=== PATIENT | male | born 1970 | race Caucasian/White ===

== ENCOUNTER 2022-06-04 11:57 | Emergency (ER) | payer OTHER, SELFPAY ==
[2022-06-04] VITALS (11 sets, daily range): BP systolic 131–152; BP diastolic 80–97; PULSE 76–86; RESP 18; TEMP 36.6; O2SAT 96–97; BMI 23.7
[2022-06-04 13:19] LABS: Troponin, Point-of-Care* 0.02 ng/ml (0.01-0.04)
[2022-06-04 13:31] LABS: Chloride* 102 mmol/L (96-114); Potassium* 3.6 mmol/L (3.6-5.1); Sodium* 132 mmol/L (135-149)
[2022-06-04 13:34] LABS: Blood Urea Nitrogen* 11 mg/dL (7-30); Carbon Dioxide* 22 mmol/L (20-32); Creatinine* 0.9 mg/dL (0.5-1.5); Est. Creatinine Clearance* 103.42; Estimated Glomerular Filt Rate 103 ml/min
[2022-06-04 13:35] LABS: Calcium* 8.3 mg/dL (8.4-10.6); Glucose* 103 mg/dL (60-115); Magnesium* 2.2 mg/dL (1.5-2.6)
[2022-06-04 13:44] LABS: C Reactive Protein* < 0.5 mg/dL (0.5-1.0); NT Pro B Type NatriureticPept* 30 pg/mL
[2022-06-04 13:47] LABS: Troponin I* < 0.01 ng/mL (0.01-0.04)
--- NOTE | 2022-06-04 14:04 | ED_ITS ---
HPI - Chest Pain General Chief Complaint: Chest Pain Stated Complaint: Chest pain Time Seen by Provider: 06/04/22 12:30 History of Present Illness HPI narrative: 51-year-old man presenting to the emergency department with concern of intermittent burning left mid chest pain now moved to right back. Is on about day 10 of treatment for apparent ?pinched nerve? in his back. Has been taking prednisone. During the night had developed some intermittent tingling in his left hand and arm. Heart beating hard and more rapidly starting last night. Is not short of breath. Does endorse a dietary cleanse where he is certainly eating less salt than usual. No nausea or vomiting described. 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 Related Data Home Medications Medication Instructions Recorded Confirmed omeprazole 20 mg capsule,delayed 20 mg PO QDAY 05/21/22 05/21/22 release Previous Rx's Medication Instructions Recorded gabapentin 300 mg capsule 300 mg PO TID #90 caps 06/04/22 Allergies Allergy/AdvReac Type Severity Reaction Status Date / Time amoxicillin Allergy Verified 06/04/22 12:07 Review of Systems Status of ROS Reports: 6 or more systems reviewed and unremarkable except as noted in History and below [facility] Medical History Leanne albicans infection Thrombosed external hemorrhoids Social History Smoking Status: Never smoker Do you use any of these nicotine containing products: None Second hand tobacco smoke exposure: No How often do you have a drink containing alcohol: never How often do you have six or more drinks on one occasion: Never AUDIT-C Alcohol total score: 0 Non-prescribed substance use: denies use service: No Exam Narrative Exam Narrative: Pleasant. Mildly anxious. Breathing easily. Skin is warm and dry. MCP joints and distal are somewhat erythematous and raw consistent with frequent handwashing. There are some cracks deep cracks and fissures in his knuckles. Lungs are clear. Heart with regular rate and rhythm. Neck appears to be supple. Good strength and without edema in extremities. Symmetrical pulses. Const Vital Signs, click to edit/add: Vital Signs - 24 hr 06/04/22 12:08 06/04/22 12:51 06/04/22 13:02 Temperature 97.9 F Pulse Rate Pulse Rate [Apical] 85 Respiratory Rate 18 Blood Pressure 150/97 H Blood Pressure [Right Upper Arm] 139/90 H Pulse Oximetry 97 96 Oxygen Delivery Method Room Air 06/04/22 13:07 06/04/22 13:30 06/04/22 13:32 Temperature Pulse Rate 85 82 78 Pulse Rate [Apical] Respiratory Rate Blood Pressure 131/80 Blood Pressure [Right Upper Arm] Pulse Oximetry 96 97 97 Oxygen Delivery Method 06/04/22 14:00 06/04/22 14:02 06/04/22 14:30 Temperature Pulse Rate 86 78 Pulse Rate [Apical] Respiratory Rate Blood Pressure 152/86 H Blood Pressure [Right Upper Arm] Pulse Oximetry 97 97 Oxygen Delivery Method 06/04/22 14:35 06/04/22 14:36 Temperature Pulse Rate 76 78 Pulse Rate [Apical] Respiratory Rate Blood Pressure Blood Pressure [Right Upper Arm] Pulse Oximetry 97 97 Oxygen Delivery Method Documenting provider has reviewed patient's vital signs: yes Course Vital Signs Vital signs: Initial Vital Signs Temperature 97.9 F 06/04/22 12:08 Temperature Source Temporal Artery Scan 06/04/22 12:08 Pulse Rate 85 06/04/22 12:08 Pulse Rhythm 06/04/22 12:08 Respiratory Rate 18 06/04/22 12:08 Blood Pressure 139/90 H 06/04/22 12:08 Blood Pressure Mean 106 06/04/22 12:08 Blood Pressure Position Supine 06/04/22 12:08 Pulse Oximetry 97 06/04/22 12:08 Oxygen Delivery Method 06/04/22 12:08 Vital Signs Temperature 97.9 F 06/04/22 12:08 Pulse Rate 85 06/04/22 12:08 Respiratory Rate 18 06/04/22 12:08 Blood Pressure 139/90 H 06/04/22 12:08 Pulse Oximetry 97 06/04/22 12:08 Oxygen Delivery Method 06/04/22 12:08 Temperature 97.9 F 06/04/22 12:08 Pulse Rate 78 06/04/22 14:36 Respiratory Rate 18 06/04/22 12:08 Blood Pressure 152/86 H 06/04/22 14:02 Pulse Oximetry 97 06/04/22 14:36 Oxygen Delivery Method 06/04/22 12:08 MDM - Chest Pain MDM Narrative Medical decision making narrative: Anticipate evaluation for atypical chest pain/discomfort. 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 This did show PVC uncertain symptomatology. Obtained D-dimer for potential vascular anomaly. Does not appear to be clearly musculoskeletal in origin. I suppose it is possible that stacked/coupled PVCs could have been responsible for some of symptoms. Prednisone could be playing a stimulatory role. Labs with reassuring cardiac labs and D-dimer. Mild hyponatremia that I do not think is related to the symptoms. With continued radicular symptoms perhaps trial of gabapentin would be helpful. Lab Data Attestation: I reviewed the patient's lab results. Labs: Lab Results 06/04/22 06/04/22 06/04/22 Range/Units 12:52 13:09 13:09 Hgb 14.0 (13.5-17.5) gm/dL D-Dimer Quant (PE/DVT) (0.00-0.50) ug/ml Sodium 132 L (135-149) mmol/L Potassium 3.6 (3.6-5.1) mmol/L Chloride 102 (96-114) mmol/L Carbon Dioxide 22 (20-32) mmol/L BUN 11 (7-30) mg/dL Creatinine 0.9 (0.5-1.5) mg/dL Estimated Creat Clear 103.42 Estimated GFR 103 ml/min Glucose 103 (60-115) mg/dL Calcium 8.3 L (8.4-10.6) mg/dL Magnesium 2.2 (1.5-2.6) mg/dL Troponin I < 0.01 L (0.01-0.04) ng/mL C-Reactive Protein < 0.5 L (0.5-1.0) mg/dL NT-Pro-B Natriuret Pep 30 pg/mL POC Troponin I 0.02 (0.01-0.04) ng/ml 06/04/22 Range/Units 13:09 Hgb (13.5-17.5) gm/dL D-Dimer Quant (PE/DVT) < 0.27 (0.00-0.50) ug/ml Sodium (135-149) mmol/L Potassium (3.6-5.1) mmol/L Chloride (96-114) mmol/L Carbon Dioxide (20-32) mmol/L BUN (7-30) mg/dL Creatinine (0.5-1.5) mg/dL Estimated Creat Clear Estimated GFR ml/min Glucose (60-115) mg/dL Calcium (8.4-10.6) mg/dL Magnesium (1.5-2.6) mg/dL Troponin I (0.01-0.04) ng/mL C-Reactive Protein (0.5-1.0) mg/dL NT-Pro-B Natriuret Pep pg/mL POC Troponin I (0.01-0.04) ng/ml ECG Data Attestation: I personally reviewed and interpreted this ECG as follows: (Normal sinus at a rate of 87) Discharge Plan Discharge Clinical Impression: Radicular low back pain, Premature ventricular contraction, Hyponatremia, Atypical chest pain Patient Disposition: Home, Self-Care Condition: Stable Additional Instructions: Stay well-hydrated. Return for marked increase in persistent chest pain particularly if associated with lightheadedness or shortness of breath. Would follow up in primary care to discuss this further. Prescriptions: New gabapentin 300 mg capsule 300 mg PO TID Qty: 90 2RF No Action omeprazole 20 mg capsule,delayed release(DR/EC) 20 mg PO QDAY Follow Up/Referrals: MARCELLE RAO DO [Primary Care Provider] - Stand Alone Forms: [employer] Info Instructions
[2022-06-04 14:57] LABS: D Dimer Quantitative* < 0.27 ug/ml (0.00-0.50)
== END 2022-06-04 15:12 | disposition home or self-care (01) ==
PROVIDERS: Emergency Provider Family Medicine; PCP Student in an Organized Health Care Education/Training Program
DX: M54.16 Radiculopathy, lumbar region (principal); I49.3 Ventricular premature depolarization; E87.1 Hypo-osmolality and hyponatremia; R07.89 Other chest pain
CPT/HCPCS: 36415; 80048; 83735; 83880; 84484; 85018; 85379; 86140; 93005; 94761; 99284